=== PATIENT | female | born 1950 | race African-American/Black ===

== ENCOUNTER 2021-07-30 17:13 | Inpatient (IN) | payer MEDICARE, MEDICAID ==
[~2021-07-30] VITALS: Ht 170.2 cm; Wt 100.2 kg
[2021-07-30 18:14] LABS: BASOPHILS % 1.3 % (0.0-2.0); EOSINOPHILS % 0.2 % (0.0-5.0); HEMATOCRIT. 41.8 % (36.0-48.0); HEMOGLOBIN. 14.4 g/dL (12.0-16.0); LYMPHOCYTES % 14.4 % (20.0-50.0); MEAN CORPUSCULAR HEMOGLOBIN 30.7 pg (28.0-32.0); NEUTROPHILS % 80.1 % (40.0-76.0); PLATELET 448 x1000/uL (130-400); RED CELL DISTRIBUTION WIDTH 14.8 % (11.6-14.6)
[2021-07-30 18:22] LABS: CHLORIDE 106 mEq/L (98-107)
[2021-07-30] MEDS ORDERED: MORPHINE SULFATE 4 MG/ML CPJ (NOT FOR IM USE) IV STA (19:24)
[2021-07-30] MEDS ORDERED: ONDANSETRON HCL 4MG/2ML INJ IV STA (19:24)
[2021-07-30 19:25] LABS: PARTIAL THROMBOPLASTIN TIME 27.2 sec (23.4-31.0); PROTHROMBIN TIME 10.8 sec (9.6-11.0)
[2021-07-30] MEDS ORDERED: SODIUM CHLORIDE 0.9% 1,000 ML IV ONE (19:30)
[2021-07-30] MEDS: MORPHINE SULFATE 2 MG/ML CPJ (NOT FOR IM USE) IV NR ×2 (20:18→21:14)
[2021-07-30] MEDS ORDERED: CEFTRIAXONE 1 G PREMIX 50 ML IV ONE (20:30)
[2021-07-30] MEDS ORDERED: AZITHROMYCIN 500MG/250ML 250 ML IV ONE (20:30)
[2021-07-30] MEDS ORDERED: ASPIRIN 325MG EC TABLET PO ONE (20:30)
[2021-07-30 21:13] LABS: CLARITY URINE CLEAR (CLEAR); COLOR URINE DARK YELLOW (YELLOW); KETONES URINE 3+ (NEGATIVE); LEUKOCYTE ESTERASE URINE NEGATIVE (NEGATIVE); NITRITE URINE NEGATIVE (NEGATIVE); OCCULT BLOOD URINE TRACE (NEGATIVE); PH URINE 6.5 (4.5-8.0); PROTEIN URINE 2+ (NEGATIVE); SPECIFIC GRAVITY URINE 1.032 (1.005-1.030)
[2021-07-31] MEDS ORDERED: ENOXAPARIN 40MG/0.4ML SYR SUBCUT SCH (00:30)
[2021-07-31] MEDS ORDERED: IPRATROPIUM/ALBUTEROL 0.5-3(2.5)MG/3ML NEB HHN PRN (00:30)
[2021-07-31] MEDS ORDERED: DOCUSATE SODIUM 100MG CAPSULE PO PRN (00:30)
[2021-07-31] MEDS ORDERED: ONDANSETRON HCL 4MG/2ML INJ IV PRN (00:30)
[2021-07-31 05:41] LABS: BASOPHILS % 1.4 % (0.0-2.0); EOSINOPHILS % 1.4 % (0.0-5.0); HEMATOCRIT. 38.2 % (36.0-48.0); HEMOGLOBIN. 12.9 g/dL (12.0-16.0); LYMPHOCYTES % 30.4 % (20.0-50.0); MEAN CORPUSCULAR HEMOGLOBIN 30.1 pg (28.0-32.0); MEAN PLATELET VOLUME 8.6 fl (7.4-10.4); MONOCYTES % 8.6 % (2.0-8.0); NEUTROPHILS % 58.2 % (40.0-76.0); PLATELET 401 x1000/uL (130-400); RED BLOOD CELL COUNT 4.29 mill/uL (4.2-5.4)
[2021-07-31 05:49] LABS: CHLORIDE 107 mEq/L (98-107)
[2021-07-31 06:23] LABS: FOLIC ACID (FOLATE) SERUM 15.3 ng/mL (>5.38)
[2021-07-31] MEDS: ENOXAPARIN 30MG/0.3ML SYR SUBCUT SCH ×2 (09:34→21:02)
[2021-07-31 10:57] VITALS: BP 122/68
[2021-07-31] MEDS: HYDROCODONE/ACETAMINOPHEN 5/325MG TABLET PO PRN (11:01)
[2021-07-31] MEDS ORDERED: AMLO5TAB4 MT (12:01)
[2021-07-31 12:08] VITALS: BP 122/68
[2021-07-31] MEDS ORDERED: POTASSIUM CHLORIDE 20MEQ TABLET SR PO NR (15:45)
[2021-07-31 16:00] VITALS: BP 152/80
[2021-07-31] MEDS ORDERED: NALOXONE HCL 0.4MG/ML VIAL IV PRN (17:30)
[2021-07-31 20:00] VITALS: BP 148/82
[2021-08-01] VITALS: BP 106/69
[2021-08-01] MEDS: HYDROCODONE/ACETAMINOPHEN 5/325MG TABLET PO PRN ×2 (00:15→06:06)
[2021-08-01 04:00] VITALS: BP 103/75
[2021-08-01 08:00] VITALS: BP 122/67
[2021-08-01] MEDS ORDERED: METHYLPREDNISOLONE ACETATE 40MG/ML VIAL IM NR (08:30)
[2021-08-01] MEDS ORDERED: ROPIVACAINE HCL 10MG/ML 20 ML VIAL EPI NR (08:30)
[2021-08-01] MEDS ORDERED: LIDOCAINE HCL 1% 20ML VIAL (Pyxis) INJ ONE (08:47)
[2021-08-01] MEDS ORDERED: SODIUM BICARBONATE 4% (2.4MEQ) 5ML VIAL IV ONE (08:47)
[2021-08-01 12:00] VITALS: BP 111/68
[2021-08-01 16:00] VITALS: BP 108/65
[2021-08-01 20:00] VITALS: BP 124/66
[2021-08-01] MEDS: CELECOXIB 200MG CAPSULE PO SCH (21:21)
[2021-08-02] VITALS: BP 127/85
[2021-08-02 04:00] VITALS: BP 118/63
[2021-08-02] MEDS: HYDROCODONE/ACETAMINOPHEN 5/325MG TABLET PO PRN ×2 (06:59→17:18)
[2021-08-02 08:00] VITALS: BP 151/60
[2021-08-02] MEDS ORDERED: ROPIVACAINE HCL 2MG/ML (0.2%) 100ML BAG IR ONE (08:00)
[2021-08-02] MEDS: CELECOXIB 200MG CAPSULE PO SCH ×2 (09:00→17:18)
[2021-08-02] MEDS ORDERED: METHYLPREDNISOLONE ACETATE 40MG/ML VIAL IM NR (09:00)
[2021-08-02] MEDS ORDERED: ROPIVACAINE HCL 10MG/ML 20 ML VIAL EPI NR (09:00)
[2021-08-02] MEDS ORDERED: LIDOCAINE HCL 1% 20ML VIAL (Pyxis) INJ ONE (10:05)
[2021-08-02] MEDS ORDERED: SODIUM BICARBONATE 4% (2.4MEQ) 5ML VIAL IV ONE (10:06)
[2021-08-02 12:00] VITALS: BP 135/57
[2021-08-02 15:53] VITALS: BP 131/65
[2021-08-02 20:00] VITALS: BP 145/72
[2021-08-03] VITALS: BP 111/66
[2021-08-03] MEDS: HYDROCODONE/ACETAMINOPHEN 5/325MG TABLET PO PRN ×4 (00:49→17:56)
[2021-08-03 04:00] VITALS: BP 128/71
[2021-08-03 08:00] VITALS: BP 145/68
[2021-08-03] MEDS: CELECOXIB 200MG CAPSULE PO SCH ×2 (09:14→17:50)
[2021-08-03 12:00] VITALS: BP 145/76
[2021-08-03 15:54] VITALS: BP 146/67
[2021-08-03 20:00] VITALS: BP 137/67
[2021-08-04] VITALS (7 sets, daily range): BP systolic 145–173; BP diastolic 61–73
[2021-08-04] MEDS: HYDROCODONE/ACETAMINOPHEN 5/325MG TABLET PO PRN ×4 (00:27→20:38)
[2021-08-04] MEDS: CELECOXIB 200MG CAPSULE PO SCH ×2 (09:13→18:54)
[2021-08-04 20:26] LABS: CHLORIDE 107 mEq/L (98-107)
[2021-08-04] MEDS: CYANOCOBALAMIN 1000MCG/ML VIAL IM SCH (20:37)
[2021-08-05] VITALS (7 sets, daily range): BP systolic 135–152; BP diastolic 62–108
[2021-08-05] MEDS: ACETAMINOPHEN 325MG TABLET PO PRN ×2 (07:06→17:18)
[2021-08-05] MEDS: CYANOCOBALAMIN 1000MCG/ML VIAL IM SCH (08:51)
[2021-08-05] MEDS: CELECOXIB 200MG CAPSULE PO SCH ×2 (08:52→17:18)
[2021-08-05] MEDS ORDERED: GABAPENTIN 300MG CAPSULE PO NR (20:15)
[2021-08-06] VITALS: BP 187/76
[2021-08-06] MEDS ORDERED: CLONIDINE 0.1MG TABLET PO PRN
[2021-08-06] MEDS: ACETAMINOPHEN 325MG TABLET PO PRN ×2 (00:42→10:46)
[2021-08-06 04:00] VITALS: BP 168/74
[2021-08-06 06:24] LABS: BASOPHILS % 0.9 % (0.0-2.0); EOSINOPHILS % 3.5 % (0.0-5.0); HEMATOCRIT. 37.3 % (36.0-48.0); HEMOGLOBIN. 12.4 g/dL (12.0-16.0); LYMPHOCYTES % 34.3 % (20.0-50.0); MEAN CORPUSCULAR HEMOGLOBIN 30.2 pg (28.0-32.0); MEAN CORPUSCULAR VOLUME 91.3 fL (81.0-99.0); MONOCYTES % 9.3 % (2.0-8.0); PLATELET 414 x1000/uL (130-400); RED BLOOD CELL COUNT 4.09 mill/uL (4.2-5.4); RED CELL DISTRIBUTION WIDTH 14.7 % (11.6-14.6)
[2021-08-06 06:28] LABS: CHLORIDE 104 mEq/L (98-107)
[2021-08-06 08:00] VITALS: BP 122/80
[2021-08-06] MEDS: CYANOCOBALAMIN 1000MCG/ML VIAL IM SCH (09:05)
[2021-08-06] MEDS: CELECOXIB 200MG CAPSULE PO SCH (09:05)
[2021-08-06 09:47] VITALS: BP 122/80
[2021-08-06 12:00] VITALS: BP 124/74
[2021-08-07 13:11] LABS: ANA IFA Positive (.); ANA SPECKLED PATTERN >1:1280 (.)
[2021-08-08 13:11] LABS: ATYPICAL P-ANCA <1:20 titer (Neg:<1:20); CYTOPLASMIC C-ANCA <1:20 titer (Neg:<1:20); PERINUCLEAR P-ANCA <1:20 titer (Neg:<1:20)
[2021-08-08 15:10] LABS: ANTI-MYELOPEROXIDASE AB < 9.0 U/mL (0.0-9.0)
[2021-08-09] MEDS ORDERED: CELECOXIB 200MG CAPSULE PO SCH (07:50)
[2021-08-09 19:10] LABS: ANTI-PROTEINASE 3 ABS < 3.5 U/mL (0.0-3.5)
== END 2021-08-06 13:06 | DRG 554 ==
LOC: ER 17:13 → 6EST 23:48 → EDBEDREQSVC 07-31 07:14 → ENRESERV 07-31 08:38
PROVIDERS: ADMIT Internal Medicine Pulmonary Disease; ATTEND Internal Medicine Pulmonary Disease
PROC: 0S9C3ZZ Drainage of Right Knee Joint, Percutaneous Approach (ICD-10-PCS; principal; 2021-08-01)
PROC: 3E0U33Z Introduction of Anti-inflammatory into Joints, Percutaneous Approach (ICD-10-PCS; 2021-08-01)
PROC: 3E0U33Z Introduction of Anti-inflammatory into Joints, Percutaneous Approach (ICD-10-PCS; 2021-08-01)
PROC: 3E0U3BZ Introduction of Anesthetic Agent into Joints, Percutaneous Approach (ICD-10-PCS; 2021-08-01)
PROC: 3E0U3BZ Introduction of Anesthetic Agent into Joints, Percutaneous Approach (ICD-10-PCS; 2021-08-01)
PROC: 3E0U33Z Introduction of Anti-inflammatory into Joints, Percutaneous Approach (ICD-10-PCS; 2021-08-02)
PROC: 3E0U3BZ Introduction of Anesthetic Agent into Joints, Percutaneous Approach (ICD-10-PCS; 2021-08-02)
DX: M17.0 Bilateral primary osteoarthritis of knee (principal); E44.1 Mild protein-calorie malnutrition; F03.90 Unspecified dementia, unspecified severity, without behavioral disturbance, psychotic disturbance, mood disturbance, and anxiety; R41.82 Altered mental status, unspecified; E11.9 Type 2 diabetes mellitus without complications; Z20.822 Contact with and (suspected) exposure to COVID-19; I10 Essential (primary) hypertension; Z74.01 Bed confinement status; Z91.81 History of falling; Z68.34 Body mass index [BMI] 34.0-34.9, adult; Z79.899 Other long term (current) drug therapy
CPT/HCPCS: 20611; 36415; 71045; 73502; 73560; 73721; 80048; 80053; 81003; 82607; 82746; 83520; 83605; 83735; 83880; 84443; 84484; 85025; 86256; 86431; 87077; 93005; 93970; 97162; 97530; 99285; A6261; C9803; J0456; J0696; J1030; J1650; J2270; J2405; J2795; J3420; J3490; J7030; U0003; U0005